=== PATIENT | female | born 1970 | race African-American/Black ===

== ENCOUNTER → 2017-10-29 | Outpatient (CLI) | payer OTHER | END | disposition home or self-care (01) | LOC: MAMMO 09:32 | DX: Z12.31 Encounter for screening mammogram for malignant neoplasm of breast (principal) | CPT/HCPCS: G0202 ==

== ENCOUNTER → 2018-10-31 | Outpatient (CLI) | payer OTHER ==
[2016-10-05 11:29] VITALS: BP 155/100
--- NOTE | 2018-11-03 09:31 | RAD ---
DATE: 10/31/2018 10:30 AM EXAM: DIGITAL SCREEN BILAT W/CAD HISTORY: routine screening evaluation. COMPARISON: Prior mammographic and ultrasound imaging dating back to 01/24/2013 Bilateral full field craniocaudal and mediolateral oblique images were obtained using digital technique. This study was interpreted with the benefit of Computerized Aided Detection (CAD ). Breast Density: The breast parenchyma shows scattered fibroglandular densities. Breast parenchyma level B. FINDINGS: Benign calcifications are present. The parenchymal pattern appears stable. Left breast mass previously shown to be benign by biopsy is borderline decreased in size. No new suspicious masses, microcalcifications or architectural distortion is present to suggest malignancy in either breast. The visualized axillae are unremarkable. IMPRESSION: No mammographic evidence of malignancy. BI-RADS CATEGORY: 2 BENIGN FINDING(S) RECOMMENDED FOLLOW-UP: 12M 12 MONTH FOLLOW-UP Annual screening mammography is recommended, unless clinically indicated sooner based on symptoms or change in physical exam. PQRS compliance statement: Patient information was entered into a reminder system with a target due date 10/31/2019 for the next mammogram. Mammography is a sensitive method for finding small breast cancers, but it does not detect them all and is not a substitute for careful clinical examination. A negative mammogram does not negate a clinically suspicious finding and should not result in delay in biopsying a clinically suspicious abnormality. "Our facility is accredited by the [employer] Mammography Program." MTDD
== END | disposition home or self-care (01) ==
LOC: MAMMO 08:27
PROVIDERS: ATTEND Family Medicine
DX: Z12.31 Encounter for screening mammogram for malignant neoplasm of breast (principal)
CPT/HCPCS: 77067

== ENCOUNTER → 2019-09-18 | Day surgery (SDC) | payer OTHER ==
[~2019-09-18] VITALS: Ht 170.2 cm; Wt 125.5 kg
[~2019-09-18] MED LIST: BUPIVACAINE-EPI 0.5%-1:200000 MPF 30 ML VIAL. INJ ONE; DEXAMETHASONE SOD PHOS 4 MG/ML VIAL ONE; GLYCOPYRROLATE 1 MG/5 ML VIAL. ONE; HYDROmorphone 2 MG/ML VIAL IV PRN; IV RINGERS,LACTATED 1000ML 1,000 ML IV SCH; KETOROLAC 30 MG/ML VIAL. ONE; LIDOCAINE 1% PF 2 ML VIAL. ID PRN; LISI10TA2 PO; MIDAZOLAM HCL/PF 2 MG/2 ML VIAL. ONE; MORPHINE SULFATE 2 MG/ML VIAL. IV PRN; NEOSTIGMINE METHYLSULFATE 5 MG/5 ML SYRINGE. ONE; ONDANSETRON PF 4 MG/2 ML VIAL. IV PRN; ONDANSETRON PF 4 MG/2 ML VIAL. ONE; PROCHLORPERAZINE 10 MG/2 ML VIAL. IV PRN; PROPOFOL 20 ML IV ONE; ROCURONIUM 50 MG/5 ML VIAL. ONE; SEVOFLURANE 61 TO 120 MINUTES. IH ONE; SUCCINYLCHOLINE 200 MG/10 ML VIAL. ONE; ceFAZolin SODIUM 3 GM in IV DEXTROSE 5% 100ML 100 ML IV PRN; ePHEDrine PF IN SALINE 50 MG/10 ML SYRINGE. IV ONE; fentaNYL PF VIAL 100 MCG/2 ML VIAL IV PRN; fentaNYL PF VIAL 100 MCG/2 ML VIAL ONE; oxyCODONE/APAP 5/325 1 TAB TABLET PO ONE
--- NOTE | 2019-09-18 11:21 | PDOC4 ---
Operative Note Operative Note Operative Note: Preoperative Diagnosis: Ventral hernia Postoperative Diagnosis: Same Procedure: Exploratory laparoscopy, ventral hernia repair with mesh Surgeon: Alessandro Meeting Facilitator: Lula FITZGERALD Anesthesia: Gen. EBL: 10 mL Specimen: None Drains: None Complications: None Indication: The patient is a 48-year-old female who was referred due to an upper abdominal hernia that developed subsequent to prior surgery. In addition she has right upper quadrant lateral abdominal pain for which etiology is unclear. The plan is to proceed with repair of the upper abdominal hernia and she requests for laparoscopy to further evaluate a potential source of pain in the lateral abdomen. The details and risks of surgery were discussed. The risks include bleeding, infection, visceral injury, pain, anesthetic risk, hernia recurrence, potential need for additional surgery or procedure. She understands and would like to proceed. Description: The patient was taken to the operating room and placed supine on the operating table. Gen. anesthesia was performed. The abdomen was prepped with ChloraPrep and draped in a standard surgical manner. A small supraumbilical incision was made in the skin through which a Veress needle was inserted and a pneumoperitoneum was created. A 5 mm trocar was then inserted and the laparoscope was introduced. Inspection of the upper abdomen showed numerous adhesions from prior surgery. There was no other abnormality that was apparent. There was no clear sign of inflammatory process or abnormal mass or lesion. The adhesions did obscure visualization somewhat however the overall appearance seemed consistent with prior surgery with no clear abnormalities. The pneumoperitoneum was relieved and we proceeded with the hernia repair. She had an upper abdominal transverse incision from prior surgery. The incision was excised in an elliptical manner. Cautery dissection was carried down through the subcutaneous tissues to the level of the fascia. The fascial defect was delineated and dissected circumferentially. The defect was fairly small. A subfascial plane was then developed and a small Ventralex ST mesh was then placed in the space. The mesh was sutured to the fascia with 0 Prolene at the 12, 3, 6, 9:00 positions in a horizontal mattress fashion. The fascial edges were approximated over the mesh with 0 Prolene. The subcutaneous tissue was closed with 3-0 Vicryl. The skin was approximated with 4-0 Monocryl and Steri- Strips and a sterile dressing were then applied. The patient tolerated the procedure well and was sent to the recovery room in stable condition. At the end of the case all counts were correct. RICHA PEÑA MD Sep 18, 2019 11:21
--- NOTE | 2019-09-18 11:25 | DISCH ---
DISCHARGE INSTRUCTIONS Condition on Discharge Condition on Discharge: Stable Activity After Discharge Activity Instructions for Disc: Other, see below (no lifting over 20 lbs X 4 weeks) Diet after Discharge Diet after Discharge: Regular Wound Incision Care Wound/Incision Care: Other, see below (keep dressing clean and dry X 72 hours, may then remove and shower) Follow-Up Follow up with: Dr Peña in 2 weeks in office, call for appt [phone] RICHA PEÑA MD Sep 18, 2019 11:24
[2019-09-18 12:10] VITALS: BP 154/83
--- NOTE | 2019-09-20 09:07 | PATHOLOGY ---
[facility] Accession Number: [id number] . 01 Material submitted: . abdomen - SUBCUTANEOUS ABDOMINAL TISSUE . 01 Clinical history: . abdominal pain . 02 Diagnosis: Segment of fibroadipose tissue, abdominal subcutaneous tissue: - Focal fat necrosis. (JPM/db; 09/19/2019) LBQ 09/19/2019 1531 Local . 02 Electronically signed: . Chace Gillespie MD, Pathologist NPI- [id number] . 01 Gross description: . The specimen is received in formalin, labeled "Rosina Hernandez, subcutaneous abdominal tissue" and consists of a segment of yellow orange lobulated tissue measuring 2.1 x 1.9 x 0.7 cm. Sectioning reveals pink-schwarz membranous/fibrous streaks and no gross lesions. Government Relations Manager tissue is submitted in A1. (SDY; 09/18/2019) SYU/SYU 09/18/2019 1652 Local . 02 Pathologist provided ICD-10: I96, R10.9 . 02 CPT . 876212 Specimen Comment: A courtesy copy of this report has been sent to [phone], [phone] Specimen Comment: [id number] Specimen Comment: Report sent to / DR ERVIN Performed at: 01 [facility] [place] [address], [place], [place] [id number] MD Loc Flowers MD Phone: [phone] Performed at: 02 [facility] [place] [address] [place], [place] [id number] MD Chace Gillespie MD Phone: [phone]
== END ==
LOC: SURG 08:10
PROVIDERS: ATTEND Surgery
DX: K43.9 Ventral hernia without obstruction or gangrene (principal); M79.89 Other specified soft tissue disorders; E66.9 Obesity, unspecified; I10 Essential (primary) hypertension; Z90.710 Acquired absence of both cervix and uterus; Z90.49 Acquired absence of other specified parts of digestive tract
CPT/HCPCS: 49652; 88304; A7015; C1713; C1781; J0171; J0330; J1100; J1885; J2250; J2405; J2704; J2710; J3010; J3490; J7030; J7120

== ENCOUNTER → 2019-11-02 | Outpatient (CLI) | payer OTHER ==
[2019-09-18 12:10] VITALS: BP 154/83
[~2019-11-02] MED LIST changes: -BUPIVACAINE-EPI 0.5%-1:200000 MPF 30 ML VIAL. INJ ONE; -DEXAMETHASONE SOD PHOS 4 MG/ML VIAL ONE; -GLYCOPYRROLATE 1 MG/5 ML VIAL. ONE; -HYDROmorphone 2 MG/ML VIAL IV PRN; -IV RINGERS,LACTATED 1000ML 1,000 ML IV SCH; -KETOROLAC 30 MG/ML VIAL. ONE; -LIDOCAINE 1% PF 2 ML VIAL. ID PRN; -MIDAZOLAM HCL/PF 2 MG/2 ML VIAL. ONE; -MORPHINE SULFATE 2 MG/ML VIAL. IV PRN; -NEOSTIGMINE METHYLSULFATE 5 MG/5 ML SYRINGE. ONE; -ONDANSETRON PF 4 MG/2 ML VIAL. IV PRN; -ONDANSETRON PF 4 MG/2 ML VIAL. ONE; -PROCHLORPERAZINE 10 MG/2 ML VIAL. IV PRN; -PROPOFOL 20 ML IV ONE; -ROCURONIUM 50 MG/5 ML VIAL. ONE; -SEVOFLURANE 61 TO 120 MINUTES. IH ONE; -SUCCINYLCHOLINE 200 MG/10 ML VIAL. ONE; -ceFAZolin SODIUM 3 GM in IV DEXTROSE 5% 100ML 100 ML IV PRN; -ePHEDrine PF IN SALINE 50 MG/10 ML SYRINGE. IV ONE; -fentaNYL PF VIAL 100 MCG/2 ML VIAL IV PRN; -fentaNYL PF VIAL 100 MCG/2 ML VIAL ONE; -oxyCODONE/APAP 5/325 1 TAB TABLET PO ONE
--- NOTE | 2019-11-02 14:49 | RAD ---
DATE: 11/02/2019 EXAM: DIGITAL SCREEN BILAT W/CAD HISTORY: Routine screening COMPARISON: 10/22/2016, 10/29/2017, 10/31/2018 mammographic exams This study was interpreted with the benefit of Computerized Aided Detection (CAD). Breast Density: SCATTERED The breast parenchyma shows scattered fibroglandular densities. Breast parenchyma level B. FINDINGS: Mass involving the left posterior breast with biopsy clip marker noted. No suspicious calcification, new mass, or new distortion. IMPRESSION: Stable BI-RADS CATEGORY: 1 NEGATIVE RECOMMENDED FOLLOW-UP: 12M 12 MONTH FOLLOW-UP PQRS compliance statement: Patient information was entered into a reminder system with a target due date for the next mammogram. Mammography is a sensitive method for finding small breast cancers, but it does not detect them all and is not a substitute for careful clinical examination. A negative mammogram does not negate a clinically suspicious finding and should not result in delay in biopsying a clinically suspicious abnormality. "Our facility is accredited by the [employer] Mammography Program."
== END | disposition home or self-care (01) ==
LOC: MAMMO 13:04
PROVIDERS: ATTEND Family Medicine
DX: Z12.31 Encounter for screening mammogram for malignant neoplasm of breast (principal); N63.20 Unspecified lump in the left breast, unspecified quadrant
CPT/HCPCS: 77067

== ENCOUNTER 2020-06-18 14:20 | Inpatient (IN) | payer BC, OTHER ==
[~2020-06-18] VITALS: Ht 170.2 cm; Wt 114.0 kg
[2020-06-18 15:01] LABS: BASO % 0 % (0-3); EOS % 0 % (0-3); HEMATOCRIT 38.2 % (36.0-47.0); HEMOGLOBIN 12.3 g/dL (12.0-15.5); LYMPH % 23 % (24-48); MEAN CORPUSCULAR HEMOGLOBIN 23 pg (25-35); MEAN CORPUSCULAR HGB CONC 32 g/dL (31-37); MEAN CORPUSCULAR VOLUME 73 fL (79-100); MONO # 0.3 x10^3/uL (0.0-1.1); MONO % 7 % (0-9); NEUT % 69 % (31-73); PLATELET COUNT 139 x10^3/uL (140-400); RED BLOOD COUNT 5.26 x10^6/uL (3.50-5.40); RED CELL DISTRIBUTION WIDTH 14.9 % (11.5-14.5); WHITE BLOOD COUNT 4.3 x10^3/uL (4.0-11.0)
[2020-06-18 15:08] LABS: CALCIUM 8.7 mg/dL (8.5-10.1); CREATININE 0.9 mg/dL (0.6-1.0); GFR 80.9; POTASSIUM 3.5 mmol/L (3.5-5.1)
[2020-06-18 15:14] LABS: ALBUMIN 3.5 g/dL (3.4-5.0); ALBUMIN/GLOBULIN RATIO 0.8 (1.0-1.7); TOTAL BILIRUBIN 0.3 mg/dL (0.2-1.0)
[2020-06-18] MEDS ORDERED: IV NORMAL SALINE 1000ML BAG 1,000 ML IV ONE (15:30)
[2020-06-18] MEDS ORDERED: ACETAMINOPHEN 500 MG TABLET PO ONE (15:30)
--- NOTE | 2020-06-18 15:32 | RAD ---
EXAM: CHEST ONE VIEW. HISTORY: Shortness of breath, Covid positive. COMPARISON: None. FINDINGS: A frontal view of the chest is obtained. The inspiration is small. Linear opacities in the bases are compatible with atelectasis, but atypical infiltrates cannot be excluded in this setting. There is no pneumothorax or pleural effusion. The heart is not enlarged. IMPRESSION: 1. Small inspiration with bibasilar atelectasis versus mild infiltrates. Electronically signed by: Miguelito Bocanegra MD (06/18/2020 3:30 PM) [id number]
[2020-06-18 15:34] LABS: BASE EXCESS COOX -1 mmol/L (-3-3); HCO3 COOX 22 mmol/L (21-28); METHEMOGLOBIN 0.4 % (0.0-1.9); OXYHEMOGLOBIN 90.6 %; PCO2 COOX 32 mmHg (35-46); PO2 COOX 59 mmHg (75-108); SAT O2 COOX 91 % (92-99)
[2020-06-18] MEDS ORDERED: AZITHRMYCN 500MG IVPB FOR OMNI 250 ML IV ONE (15:45)
[2020-06-18] MEDS ORDERED: DEXAMETHASONE 4 MG TABLET PO ONE (15:45)
--- NOTE | 2020-06-18 15:57 | PHYS DOC ---
Past Medical History Past Medical History: Hypertension Past Surgical History: Cholecystectomy, Other Additional Past Surgical Histo: PARTIAL HYST Smoking Status: Never Smoker Alcohol Use: Occasionally Drug Use: None General Adult EDM: Chief Complaint: SHORTNESS OF BREATH HPI: HPI: Patient is a 49 year old female who presents with sent in by her primary care today as patient has increased shortness of air and left-sided chest pain especially with breathing. Patient reports increased shortness of breath. She was diagnosed with COVID on . Patient's primary care states that when she was walking her O2 saturation was 86% on room air. Patient is 93% on room air here with sitting still in the bed. Patient has a constant dry cough. She states she is also had diarrhea for the last 2 days. She denies a fever but her temperature in the ED is 99.8. Patient's only history is high cholesterol, hypertension and hysterectomy. Patient rates her chest discomfort at a 5 out of 10. Review of Systems: Review of Systems: Constitutional: Denies fever or chills. [] Eyes: Denies change in visual acuity. [] HENT: Denies nasal congestion or sore throat. [] Respiratory: Denies cough or shortness of breath. [] Cardiovascular: Denies chest pain or edema. [] GI: Denies abdominal pain, nausea, vomiting, bloody stools or diarrhea. [] : Denies dysuria. [] Musculoskeletal: Denies back pain or joint pain. [] Integument: Denies rash. [] Neurologic: Denies headache, focal weakness or sensory changes. [] Endocrine: Denies polyuria or polydipsia. [] Lymphatic: Denies swollen glands. [] Psychiatric: Denies depression or anxiety. [] Heart Score: HEART Score for Chest Pain: HEART Score for Chest Pain Response (Comments) Value History Slighlty/Non-Suspicious 0 ECG Normal 0 Age >45 - < 65 1 Risk Factors 1 or 2 Risk Factors 1 Troponin < Normal Limit 0 Total 2 Risk Factors: Risk Factors: DM, Current or recent (<one month) smoker, HTN, HLP, family history of CAD, obesity. Risk Scores: Score 0 - 3: 2.5% MACE over next 6 weeks - Discharge Home Score 4 - 6: 20.3% MACE over next 6 weeks - Admit for Clinical Observation Score 7 - 10: 72.7% MACE over next 6 weeks - Early Invasive Strategies Current Medications: Current Medications Medications (Trade) Dose Ordered Sig/Moy Start Time Stop Time Status Last Admin Dose Admin Acetaminophen (Tylenol) 1,000 mg 1X ONCE 06/18/20 15:30 06/18/20 15:31 DC Sodium Chloride 1,000 ml @ 1,000 mls/hr 1X ONCE 06/18/20 15:30 06/18/20 16:29 Allergies: Allergies: Allergies Coded Allergies Type Severity Reaction Last Updated Verified No Known Drug Allergies 10/04/16 No Physical Exam: PE: Constitutional: Well developed, well nourished, no acute distress, non-toxic appearance. [] HENT: Normocephalic, atraumatic, bilateral external ears normal, oropharynx mois t, no oral exudates, nose normal. [] Eyes: PERRLA, EOMI, conjunctiva normal, no discharge. [] Neck: Normal range of motion, no tenderness, supple, no stridor. [] Cardiovascular:Heart rate regular rhythm, no murmur [] Lungs & Thorax: Bilateral breath sounds clear to auscultation [] Abdomen: Bowel sounds normal, soft, no tenderness, no masses, no pulsatile masses. [] Skin: Warm, dry, no erythema, no rash. [] Back: No tenderness, no CVA tenderness. [] Extremities: No tenderness, no cyanosis, no clubbing, ROM intact, no edema. [] Neurologic: Alert and oriented X 3, normal motor function, normal sensory function, no focal deficits noted. [] Psychologic: Affect normal, judgement normal, mood normal. [] Current Patient Data: Labs: Laboratory Tests Test 06/18/20 14:45 White Blood Count 4.3 x10^3/uL (4.0-11.0) Red Blood Count 5.26 x10^6/uL (3.50-5.40) Hemoglobin 12.3 g/dL (12.0-15.5) Hematocrit 38.2 % (36.0-47.0) Mean Corpuscular Volume 73 fL (79-100) L Mean Corpuscular Hemoglobin 23 pg (25-35) L Mean Corpuscular Hemoglobin Concent 32 g/dL (31-37) Red Cell Distribution Width 14.9 % (11.5-14.5) H Platelet Count 139 x10^3/uL (140-400) L Neutrophils (%) (Auto) 69 % (31-73) Lymphocytes (%) (Auto) 23 % (24-48) L Monocytes (%) (Auto) 7 % (0-9) Eosinophils (%) (Auto) 0 % (0-3) Basophils (%) (Auto) 0 % (0-3) Neutrophils # (Auto) 3.0 x10^3/uL (1.8-7.7) Lymphocytes # (Auto) 1.0 x10^3/uL (1.0-4.8) Monocytes # (Auto) 0.3 x10^3/uL (0.0-1.1) Eosinophils # (Auto) 0.0 x10^3/uL (0.0-0.7) Basophils # (Auto) 0.0 x10^3/uL (0.0-0.2) D-Dimer (Yanelis) 0.34 ug/mlFEU (0.00-0.50) Sodium Level 136 mmol/L (136-145) Potassium Level 3.5 mmol/L (3.5-5.1) Chloride Level 98 mmol/L (98-107) Carbon Dioxide Level 29 mmol/L (21-32) Anion Gap 9 (6-14) Blood Urea Nitrogen 7 mg/dL (7-20) Creatinine 0.9 mg/dL (0.6-1.0) Estimated GFR (Cockcroft-Gault) 80.9 BUN/Creatinine Ratio 8 (6-20) Glucose Level 109 mg/dL (70-99) H Calcium Level 8.7 mg/dL (8.5-10.1) Total Bilirubin 0.3 mg/dL (0.2-1.0) Aspartate Amino Transferase (AST) 29 U/L (15-37) Alanine Aminotransferase (ALT) 26 U/L (14-59) Alkaline Phosphatase 71 U/L (46-116) Troponin I Quantitative < 0.017 ng/mL (0.000-0.055) Total Protein 8.0 g/dL (6.4-8.2) Albumin 3.5 g/dL (3.4-5.0) Albumin/Globulin Ratio 0.8 (1.0-1.7) L Laboratory Tests 06/18/20 14:45 Laboratory Tests 06/18/20 14:45 Vital Signs: Vital Signs Date Time Temp Pulse Resp B/P (MAP) Pulse Ox O2 Delivery O2 Flow Rate FiO2 06/18/20 14:25 99.8 92 20 154/83 (106) 97 Room Air 99.8 EKG: EK and read by Dr. Newell as normal sinus rhythm and no STEMI. [] Radiology/Procedures: Radiology/Procedures: [] Impression: [facility] [address] [place] [address] IMAGING REPORT Signed PATIENT: NABEEL MARTINEZ ACCOUNT: [id number] : 1970 LOCATION: ER AGE: 49 SEX: F EXAM STATUS: REG ER ORD. PHYSICIAN: HERNANDEZ PARKS APRN REASON: soa, covid+ PROCEDURE: PORTABLE CHEST 1V EXAM: CHEST ONE VIEW. HISTORY: Shortness of breath, Covid positive. COMPARISON: None. FINDINGS: A frontal view of the chest is obtained. The inspiration is small. Linear opacities in the bases are compatible with atelectasis, but atypical infiltrates cannot be excluded in this setting. There is no pneumothorax or pleural effusion. The heart is not enlarged. IMPRESSION: 1. Small inspiration with bibasilar atelectasis versus mild infiltrates. Electronically signed by: Miguelito Bocanegra MD (06/18/2020 3:30 PM) [id number] DICTATED and SIGNED BY: FADUMO BOCANEGRA MD DATE: 06/18/201529 Course & Med Decision Making: Course & Med Decision Making Pertinent Labs and Imaging studies reviewed. (See chart for details) COVID-19 CRITERIA: The patient was evaluated during the global COVID-19 pandemic, and that diagnosis was suspected/considered upon their initial presentation. Their evaluation, treatment and testing was consistent with current guidelines for patients who present with complaints or symptoms that may be related to COVID-19. Alert and oriented x4. Skin pink warm and dry. Lungs are clear in upper lobes but diminished in lower lobes bilaterally. Abdomen soft and nontender. No extremity edema. Patient speaks in full sentences but is broken up due to her coughing. Her ABG shows 91% O2 saturation. I have spoken to Dr. Olsen for admission. [] Jhoana Disclaimer: Jhoana Disclaimer: This electronic medical record was generated, in whole or in part, using a voice recognition dictation system. COVID-19 Patient Risks: Age 65 or older: No Sign of co-morbidity: Yes Exp to person + for COVID: No Exp to PUI: No Travel from affected area: No Lower respiratory symptoms: Yes Fever: Yes Other: Yes (PATIENT POSITIVE FOR COVID) PPE Use: Full PPE with N95 mask or PAPR: Yes Departure Departure Impression: Primary Impression: COVID-19 Additional Impression: Hypoxia Disposition: ADMITTED INPATIENT Admitting Physician: DAWNA Condition: STABLE Referrals: POLLO ERVIN MD (PCP) Justicifation of Admission Dx: Justifications for Admission: Justification of Admission Dx: Yes (hypoxia) HERNANDEZ PARKS GOLDSMITH APPRENTICE Jun 18, 2020 15:57
[2020-06-18 16:14] LABS: BILIRUBIN,URINE NEGATIVE (NEG); CLARITY,URINE CLEAR; COLOR,URINE YELLOW; NITRITE,URINE NEGATIVE (NEG); PROTEIN,URINE 30 mg/dL (NEG-TRACE); UROBILINOGEN,URINE 0.2 mg/dL (0.2 mg/dL)
[2020-06-18 16:17] LABS: BACTERIA,URINE FEW /HPF (0-FEW); RBC,URINE 0 /HPF (0-2); SQUAMOUS EPITHELIAL CELL,UR MOD /LPF
[2020-06-18] MEDS ORDERED: ACETAMINOPHEN 325 MG TABLET. PO PRN (16:30)
[2020-06-18] MEDS ORDERED: ONDANSETRON PF 4 MG/2 ML VIAL. IV PRN (16:30)
[2020-06-18] MEDS ORDERED: ALBUTEROL SULFATE 2.5 MG/3 ML NEBU. NEB PRN (17:00)
[2020-06-18 18:41] VITALS: BP 110/74
[2020-06-18] MEDS ORDERED: IPRATRPIUM/ALBUTEROL 0.5/2.5MG 3 ML NEBU. NEB SCH (20:00)
[2020-06-18] MEDS ORDERED: PIP/TAZO PER PHARMACY MC PRN (21:00)
--- NOTE | 2020-06-18 21:03 | CONS ---
DATE OF CONSULTATION: 06/18/2020 PULMONARY CONSULTATION ATTENDING PHYSICIAN: Dr. Olsen. REASON FOR CONSULTATION: COVID pneumonia. HISTORY OF PRESENT ILLNESS: The patient is 49 years old with a BMI of 40.8. She has no significant tobacco history. She was not feeling well with cough, body aches, and tired. She said she helped move her daughter to a new apartment and everybody got sick and had COVID. She was seen in the Emergency Room with saturation of 86% on room air. As a result, she was hospitalized. The patient's chest x-ray showed faint basal infiltrates versus atelectasis. Her T-max was 99.8 in the ER. No headaches, no nausea, vomiting, no diarrhea, no dysuria. No history of asthma. PAST MEDICAL HISTORY: Significant for history of dyslipidemia and hypertension. PAST SURGICAL HISTORY: Hysterectomy. ALLERGIES: None. MEDICATIONS: Reviewed as listed in the MRAD. REVIEW OF SYSTEMS: Obtained from the patient, twelve-point systems obtained. Pertinent positives discussed in my history of present illness, otherwise noncontributory. FAMILY HISTORY: Noncontributory to lungs. PHYSICAL EXAMINATION: VITAL SIGNS: T-max of 99.8. The exam was done via telemedicine. Vital signs were reviewed. GENERAL: She is in no obvious respiratory distress. She is requiring 2 liters of nasal cannula, 97% saturation. SKIN: No skin rash. LUNGS: No paradoxical breathing. LABORATORY DATA: Reviewed. White cell count 12.3, hemoglobin 12.3, and platelets are 139. BUN and creatinine are normal. ABGs with a pH of 7.46, pCO2 of 32, and a pO2 of 59 on room air. IMPRESSION: 1. Acute hypoxic respiratory failure secondary to COVID-19 pneumonia. 2. Abnormal chest x-ray suggesting mild basal infiltrates consistent with pneumonia. 3. Underlying obesity. 4. Hypertension. RECOMMENDATIONS: 1. Continue with present oxygen at 2 liters, keep saturation 92 and above. 2. Add empiric antibiotics. 3. IV Solu-Medrol. 4. We will follow the response to treatment. 5. If clinically deteriorates, we can add remdesivir and consider plasma. 6. Discussed with RN. We will follow along with you. MINDA TY MD DR: GORAN/emeterio JOB#: [id number] / [id number] JANEEN Hidalgo DO
--- NOTE | 2020-06-18 21:12 | HP ---
ADMIT DATE: 06/18/2020 CHIEF COMPLAINT: Recent COVID-19 infection with worsening symptoms. HISTORY OF PRESENT ILLNESS: The patient is a pleasant 49-year-old female who was diagnosed with COVID-19 last . She was sent home with some appropriate medications, but she states her symptoms are worsening. Her oxygen saturations are down to 86% on room air. She has a persistent cough now. She has also had some diarrhea. I discussed the case with ER physician. We are going to admit the patient and treat her with COVID-19 protocol and I am going to be consulting Infectious Disease and Pulmonary. PAST MEDICAL AND SURGICAL HISTORY: Recent diagnosis of COVID-19 about 5 days ago, hypertension, cholecystectomy, hyperlipidemia, hysterectomy. ALLERGIES: None. FAMILY HISTORY: Diabetes. SOCIAL HISTORY: She does not drink, smoke or take drugs. MEDICATIONS: Reviewed, please refer to the MRAD. REVIEW OF SYSTEMS: GENERAL: She complains of weakness. SKIN: No bruising, hair changes or rashes. EYES: No blurred, double or loss of vision. NOSE AND THROAT: No history of nosebleeds, hoarseness or sore throat. HEART: No history of palpitations, chest pain or shortness of breath on exertion. LUNGS: The patient complains of shortness of breath and cough. GASTROINTESTINAL: She complains of diarrhea. GENITOURINARY: No history of frequency, urgency, hesitancy or nocturia. NEUROLOGIC: Denies history of numbness, tingling, tremor or weakness. PSYCHIATRIC: No history of panic, anxiety or depression. ENDOCRINE: No history of heat or cold intolerance, polyuria or polydipsia. EXTREMITIES: Denies muscle weakness, joint pain, pain on walking or stiffness. ASSESSMENT AND PLAN: Respiratory failure secondary to COVID-19. The patient is being admitted. We are consulting Infectious Disease and Pulmonary. IV antibiotics, IV steroids, metered-dose inhalers, O2 per nasal cannula. We will consider remdesivir and plasma if Pulmonary, Infectious Disease agree. PROGNOSIS: Guarded. JANEEN LUCAS DO DR: JERMAINE/emeterio JOB#: [id number] / [id number]
[2020-06-18] MEDS: methylPREDNISolone SOD SUCC PF 40 MG/ML VIAL. IV SCH (22:38)
[2020-06-18] MEDS: PIPERACILLIN/TAZOBACTAM 3.375 GM in IV NORMAL SALINE 50ML 50 ML IV SCH (22:39)
[2020-06-18] MEDS: BENZONATATE 100 MG CAPSULE. PO SCH (22:42)
[2020-06-18 23:00] VITALS: BP 110/73
[2020-06-19 03:00] VITALS: BP 140/95
[2020-06-19] MEDS: BENZONATATE 100 MG CAPSULE. PO SCH ×2 (05:59→14:43)
[2020-06-19] MEDS: PIPERACILLIN/TAZOBACTAM 3.375 GM in IV NORMAL SALINE 50ML 50 ML IV SCH ×3 (06:00→16:33)
[2020-06-19 07:00] VITALS: BP 134/85
[2020-06-19] MEDS: methylPREDNISolone SOD SUCC PF 40 MG/ML VIAL. IV SCH ×2 (07:58→21:28)
[2020-06-19] MEDS: MULTIVITAMIN with MINERAL TABLET. PO SCH (07:58)
[2020-06-19] MEDS: AZITHROMYCIN 250 MG TABLET. PO SCH (07:58)
[2020-06-19] MEDS ORDERED: LISINOPRIL 10 MG TABLET PO SCH (09:00)
--- NOTE | 2020-06-19 09:43 | PDOC ---
Infectious Disease Note Vital Sign Vital Signs Vital Signs Date Time Temp Pulse Resp B/P (MAP) Pulse Ox O2 Delivery O2 Flow Rate FiO2 06/19/20 07:58 100 140/95 06/19/20 07:00 97.7 19 97 Room Air 2.0 97.7 Labs Lab Laboratory Tests Test 06/18/20 14:45 06/18/20 15:30 06/18/20 16:04 White Blood Count 4.3 x10^3/uL (4.0-11.0) Red Blood Count 5.26 x10^6/uL (3.50-5.40) Hemoglobin 12.3 g/dL (12.0-15.5) Hematocrit 38.2 % (36.0-47.0) Mean Corpuscular Volume 73 fL (79-100) Mean Corpuscular Hemoglobin 23 pg (25-35) Mean Corpuscular Hemoglobin Concent 32 g/dL (31-37) Red Cell Distribution Width 14.9 % (11.5-14.5) Platelet Count 139 x10^3/uL (140-400) Neutrophils (%) (Auto) 69 % (31-73) Lymphocytes (%) (Auto) 23 % (24-48) Monocytes (%) (Auto) 7 % (0-9) Eosinophils (%) (Auto) 0 % (0-3) Basophils (%) (Auto) 0 % (0-3) Neutrophils # (Auto) 3.0 x10^3/uL (1.8-7.7) Lymphocytes # (Auto) 1.0 x10^3/uL (1.0-4.8) Monocytes # (Auto) 0.3 x10^3/uL (0.0-1.1) Eosinophils # (Auto) 0.0 x10^3/uL (0.0-0.7) Basophils # (Auto) 0.0 x10^3/uL (0.0-0.2) D-Dimer (Yanelis) 0.34 ug/mlFEU (0.00-0.50) Sodium Level 136 mmol/L (136-145) Potassium Level 3.5 mmol/L (3.5-5.1) Chloride Level 98 mmol/L (98-107) Carbon Dioxide Level 29 mmol/L (21-32) Anion Gap 9 (6-14) Blood Urea Nitrogen 7 mg/dL (7-20) Creatinine 0.9 mg/dL (0.6-1.0) Estimated GFR (Cockcroft-Gault) 80.9 BUN/Creatinine Ratio 8 (6-20) Glucose Level 109 mg/dL (70-99) Calcium Level 8.7 mg/dL (8.5-10.1) Total Bilirubin 0.3 mg/dL (0.2-1.0) Aspartate Amino Transf (AST/SGOT) 29 U/L (15-37) Alanine Aminotransferase (ALT/SGPT) 26 U/L (14-59) Alkaline Phosphatase 71 U/L (46-116) Troponin I Quantitative < 0.017 ng/mL (0.000-0.055) Total Protein 8.0 g/dL (6.4-8.2) Albumin 3.5 g/dL (3.4-5.0) Albumin/Globulin Ratio 0.8 (1.0-1.7) O2 Saturation 91 % (92-99) Arterial Blood pH 7.46 (7.35-7.45) Arterial Blood pCO2 at Patient Temp 32 mmHg (35-46) Arterial Blood pO2 at Patient Temp 59 mmHg (75-108) Arterial Blood HCO3 22 mmol/L (21-28) Arterial Blood Base Excess -1 mmol/L (-3-3) Oxyhemoglobin 90.6 % Methemoglobin 0.4 % (0.0-1.9) Carbon Monoxide, Quantitative 0.3 % (0.0-1.9) FiO2 21 Urine Collection Type Unknown Urine Color Yellow Urine Clarity Clear Urine pH 6.0 (<5.0-8.0) Urine Specific Wagoner 1.015 (1.000-1.030) Urine Protein 30 mg/dL (NEG-TRACE) Urine Glucose (UA) Negative mg/dL (NEG) Urine Ketones (Stick) 40 mg/dL (NEG) Urine Blood Negative (NEG) Urine Nitrite Negative (NEG) Urine Bilirubin Negative (NEG) Urine Urobilinogen Dipstick 0.2 mg/dL (0.2 mg/dL) Urine Leukocyte Esterase Negative (NEG) Urine RBC 0 /HPF (0-2) Urine WBC 1-4 /HPF (0-4) Urine Squamous Epithelial Cells Mod /LPF Urine Bacteria Few /HPF (0-FEW) Urine Mucus Mod /LPF Objective Assessment fever COVID + 06/13 but colleced at [facility] 06/11 Morbid Obesity Acute hypoxic resp failure On Steroids Plan Plan of Care Cont Zosyn for now but wean soon F/u labs and cults Need for Plasma/Remdesivir per Pulm. Cont Steroids per Pulm Thank you # [id number] WARREN FOSTER MD Jun 19, 2020 09:43
--- NOTE | 2020-06-19 09:52 | PDOC ---
[employer] PROGRESS NOTE Date of Service DOS: DATE: 06/19/20 TIME: 09:52 Chief Complaint Chief Complaint Acute hypoxic respiratory failure secondary to COVID-19 pneumonia.--improved. Continue steroids. No indication for remdesivir or convalescent plasma at this time. Abnormal chest x-ray suggesting mild basal infiltrates consistent with pneumonia. Obesity. Hypertension. HLD History of Present Illness History of Present Illness Ms Hernandez is a 49-year-old female w/ PMHx HTN, HLD who was diagnosed with COVID- 19 after being informed of the positive test result that was performed on 09/20/2020. She was informed 3 days later about the positive result. She was sent home with self care, but she return to ED as her symptoms are worsening. Her oxygen saturations are down to 86% on room air. She has a persistent cough now. She has also had some diarrhea. Started on steroids Consulting Infectious Disease and Pulmonary. Afebrile. On 2 L nasal cannulated oxygen. She still has an ongoing cough that is improved with Tessalon Perles. Only slight diarrhea and slight abdominal pain. Overall she feels about the same as yesterday Vitals/I&O Vitals/I&O: Vital Signs Date Time Temp Pulse Resp B/P (MAP) Pulse Ox O2 Delivery O2 Flow Rate FiO2 06/19/20 07:58 100 140/95 06/19/20 07:00 97.7 19 97 Room Air 2.0 97.7 I & O 06/18/20 06/18/20 06/19/20 14:59 22:59 06:59 Intake Total 1250 ml 200 ml Balance 1250 ml 200 ml Physical Exam Lungs: Clear Labs Labs: Laboratory Tests Test 06/18/20 14:45 06/18/20 15:30 06/18/20 16:04 White Blood Count 4.3 x10^3/uL (4.0-11.0) Red Blood Count 5.26 x10^6/uL (3.50-5.40) Hemoglobin 12.3 g/dL (12.0-15.5) Hematocrit 38.2 % (36.0-47.0) Mean Corpuscular Volume 73 fL (79-100) Mean Corpuscular Hemoglobin 23 pg (25-35) Mean Corpuscular Hemoglobin Concent 32 g/dL (31-37) Red Cell Distribution Width 14.9 % (11.5-14.5) Platelet Count 139 x10^3/uL (140-400) Neutrophils (%) (Auto) 69 % (31-73) Lymphocytes (%) (Auto) 23 % (24-48) Monocytes (%) (Auto) 7 % (0-9) Eosinophils (%) (Auto) 0 % (0-3) Basophils (%) (Auto) 0 % (0-3) Neutrophils # (Auto) 3.0 x10^3/uL (1.8-7.7) Lymphocytes # (Auto) 1.0 x10^3/uL (1.0-4.8) Monocytes # (Auto) 0.3 x10^3/uL (0.0-1.1) Eosinophils # (Auto) 0.0 x10^3/uL (0.0-0.7) Basophils # (Auto) 0.0 x10^3/uL (0.0-0.2) D-Dimer (Yanelis) 0.34 ug/mlFEU (0.00-0.50) Sodium Level 136 mmol/L (136-145) Potassium Level 3.5 mmol/L (3.5-5.1) Chloride Level 98 mmol/L (98-107) Carbon Dioxide Level 29 mmol/L (21-32) Anion Gap 9 (6-14) Blood Urea Nitrogen 7 mg/dL (7-20) Creatinine 0.9 mg/dL (0.6-1.0) Estimated GFR (Cockcroft-Gault) 80.9 BUN/Creatinine Ratio 8 (6-20) Glucose Level 109 mg/dL (70-99) Calcium Level 8.7 mg/dL (8.5-10.1) Total Bilirubin 0.3 mg/dL (0.2-1.0) Aspartate Amino Transf (AST/SGOT) 29 U/L (15-37) Alanine Aminotransferase (ALT/SGPT) 26 U/L (14-59) Alkaline Phosphatase 71 U/L (46-116) Troponin I Quantitative < 0.017 ng/mL (0.000-0.055) Total Protein 8.0 g/dL (6.4-8.2) Albumin 3.5 g/dL (3.4-5.0) Albumin/Globulin Ratio 0.8 (1.0-1.7) O2 Saturation 91 % (92-99) Arterial Blood pH 7.46 (7.35-7.45) Arterial Blood pCO2 at Patient Temp 32 mmHg (35-46) Arterial Blood pO2 at Patient Temp 59 mmHg (75-108) Arterial Blood HCO3 22 mmol/L (21-28) Arterial Blood Base Excess -1 mmol/L (-3-3) Oxyhemoglobin 90.6 % Methemoglobin 0.4 % (0.0-1.9) Carbon Monoxide, Quantitative 0.3 % (0.0-1.9) FiO2 21 Urine Collection Type Unknown Urine Color Yellow Urine Clarity Clear Urine pH 6.0 (<5.0-8.0) Urine Specific [place] 1.015 (1.000-1.030) Urine Protein 30 mg/dL (NEG-TRACE) Urine Glucose (UA) Negative mg/dL (NEG) Urine Ketones (Stick) 40 mg/dL (NEG) Urine Blood Negative (NEG) Urine Nitrite Negative (NEG) Urine Bilirubin Negative (NEG) Urine Urobilinogen Dipstick 0.2 mg/dL (0.2 mg/dL) Urine Leukocyte Esterase Negative (NEG) Urine RBC 0 /HPF (0-2) Urine WBC 1-4 /HPF (0-4) Urine Squamous Epithelial Cells Mod /LPF Urine Bacteria Few /HPF (0-FEW) Urine Mucus Mod /LPF Assessment and Plan Assessmemt and Plan Problems Medical Problems: (1) COVID-19 Status: Acute (2) Hypoxia Status: Acute Comment Review of Relevant I have reviewed the following items barry (where applicable) has been applied. Medications: Current Medications Medications (Trade) Dose Ordered Sig/Moy Route PRN Reason Start Time Stop Time Status Last Admin Dose Admin Sodium Chloride 1,000 ml @ 1,000 mls/hr 1X ONCE IV 06/18/20 15:30 06/18/20 16:29 DC 06/18/20 15:45 Acetaminophen (Tylenol) 1,000 mg 1X ONCE PO 06/18/20 15:30 06/18/20 15:31 DC 06/18/20 15:46 Dexamethasone (Decadron) 10 mg 1X ONCE PO 06/18/20 15:45 06/18/20 15:46 DC 06/18/20 15:49 Azithromycin 250 ml @ 250 mls/hr 1X ONCE IV 06/18/20 15:45 06/18/20 16:44 DC 06/18/20 15:50 Lisinopril (Prinivil) 10 mg DAILY PO 06/19/20 09:00 06/19/20 07:58 Azithromycin (Zithromax) 250 mg DAILY PO 06/19/20 09:00 06/22/20 09:00 06/19/20 07:58 Methylprednisolone Sodium Succinate (SOLU-Medrol 40MG VIAL) 40 mg BID IV 06/18/20 21:00 06/19/20 07:58 Multivitamins (Thera M Plus) 1 tab DAILY PO 06/19/20 09:00 06/19/20 07:58 Piperacillin Sod/ Tazobactam Sod 3.375 gm/Sodium Chloride 50 ml @ 100 mls/hr Q6HRS IV 06/18/20 22:00 06/19/20 06:00 Benzonatate (Tessalon Perle) 200 mg Q8HRS PO 06/18/20 22:00 06/19/20 05:59 Justicifation of Admission Dx: Justifications for Admission: Justification of Admission Dx: Yes (hypoxia) JAIRO ALLEN MD Jun 19, 2020 09:52
--- NOTE | 2020-06-19 10:49 | PDOC ---
PULMONARY PROGRESS NOTES DATE: 06/19/20 TIME: 10:46 Subjective PT. is up sitting EOB on room air no SOB, No increase cough, No CP Vitals Vital Signs Date Time Temp Pulse Resp B/P (MAP) Pulse Ox O2 Delivery O2 Flow Rate FiO2 06/19/20 07:58 100 140/95 06/19/20 07:00 97.7 19 97 Room Air 2.0 97.7 Comments Pt. seen during pandemic visual exam preformed RRR R/A- 2 Liters N/C no edema no rash Lungs: Clear Labs Laboratory Tests Test 06/18/20 14:45 06/18/20 15:30 06/18/20 16:04 White Blood Count 4.3 x10^3/uL (4.0-11.0) Red Blood Count 5.26 x10^6/uL (3.50-5.40) Hemoglobin 12.3 g/dL (12.0-15.5) Hematocrit 38.2 % (36.0-47.0) Mean Corpuscular Volume 73 fL (79-100) Mean Corpuscular Hemoglobin 23 pg (25-35) Mean Corpuscular Hemoglobin Concent 32 g/dL (31-37) Red Cell Distribution Width 14.9 % (11.5-14.5) Platelet Count 139 x10^3/uL (140-400) Neutrophils (%) (Auto) 69 % (31-73) Lymphocytes (%) (Auto) 23 % (24-48) Monocytes (%) (Auto) 7 % (0-9) Eosinophils (%) (Auto) 0 % (0-3) Basophils (%) (Auto) 0 % (0-3) Neutrophils # (Auto) 3.0 x10^3/uL (1.8-7.7) Lymphocytes # (Auto) 1.0 x10^3/uL (1.0-4.8) Monocytes # (Auto) 0.3 x10^3/uL (0.0-1.1) Eosinophils # (Auto) 0.0 x10^3/uL (0.0-0.7) Basophils # (Auto) 0.0 x10^3/uL (0.0-0.2) D-Dimer (Yanelis) 0.34 ug/mlFEU (0.00-0.50) Sodium Level 136 mmol/L (136-145) Potassium Level 3.5 mmol/L (3.5-5.1) Chloride Level 98 mmol/L (98-107) Carbon Dioxide Level 29 mmol/L (21-32) Anion Gap 9 (6-14) Blood Urea Nitrogen 7 mg/dL (7-20) Creatinine 0.9 mg/dL (0.6-1.0) Estimated GFR (Cockcroft-Gault) 80.9 BUN/Creatinine Ratio 8 (6-20) Glucose Level 109 mg/dL (70-99) Calcium Level 8.7 mg/dL (8.5-10.1) Total Bilirubin 0.3 mg/dL (0.2-1.0) Aspartate Amino Transf (AST/SGOT) 29 U/L (15-37) Alanine Aminotransferase (ALT/SGPT) 26 U/L (14-59) Alkaline Phosphatase 71 U/L (46-116) Troponin I Quantitative < 0.017 ng/mL (0.000-0.055) Total Protein 8.0 g/dL (6.4-8.2) Albumin 3.5 g/dL (3.4-5.0) Albumin/Globulin Ratio 0.8 (1.0-1.7) O2 Saturation 91 % (92-99) Arterial Blood pH 7.46 (7.35-7.45) Arterial Blood pCO2 at Patient Temp 32 mmHg (35-46) Arterial Blood pO2 at Patient Temp 59 mmHg (75-108) Arterial Blood HCO3 22 mmol/L (21-28) Arterial Blood Base Excess -1 mmol/L (-3-3) Oxyhemoglobin 90.6 % Methemoglobin 0.4 % (0.0-1.9) Carbon Monoxide, Quantitative 0.3 % (0.0-1.9) FiO2 21 Urine Collection Type Unknown Urine Color Yellow Urine Clarity Clear Urine pH 6.0 (<5.0-8.0) Urine Specific [place] 1.015 (1.000-1.030) Urine Protein 30 mg/dL (NEG-TRACE) Urine Glucose (UA) Negative mg/dL (NEG) Urine Ketones (Stick) 40 mg/dL (NEG) Urine Blood Negative (NEG) Urine Nitrite Negative (NEG) Urine Bilirubin Negative (NEG) Urine Urobilinogen Dipstick 0.2 mg/dL (0.2 mg/dL) Urine Leukocyte Esterase Negative (NEG) Urine RBC 0 /HPF (0-2) Urine WBC 1-4 /HPF (0-4) Urine Squamous Epithelial Cells Mod /LPF Urine Bacteria Few /HPF (0-FEW) Urine Mucus Mod /LPF Laboratory Tests Test 06/18/20 14:45 06/18/20 15:30 06/18/20 16:04 White Blood Count 4.3 x10^3/uL (4.0-11.0) Red Blood Count 5.26 x10^6/uL (3.50-5.40) Hemoglobin 12.3 g/dL (12.0-15.5) Hematocrit 38.2 % (36.0-47.0) Mean Corpuscular Volume 73 fL (79-100) Mean Corpuscular Hemoglobin 23 pg (25-35) Mean Corpuscular Hemoglobin Concent 32 g/dL (31-37) Red Cell Distribution Width 14.9 % (11.5-14.5) Platelet Count 139 x10^3/uL (140-400) Neutrophils (%) (Auto) 69 % (31-73) Lymphocytes (%) (Auto) 23 % (24-48) Monocytes (%) (Auto) 7 % (0-9) Eosinophils (%) (Auto) 0 % (0-3) Basophils (%) (Auto) 0 % (0-3) Neutrophils # (Auto) 3.0 x10^3/uL (1.8-7.7) Lymphocytes # (Auto) 1.0 x10^3/uL (1.0-4.8) Monocytes # (Auto) 0.3 x10^3/uL (0.0-1.1) Eosinophils # (Auto) 0.0 x10^3/uL (0.0-0.7) Basophils # (Auto) 0.0 x10^3/uL (0.0-0.2) D-Dimer (Yanelis) 0.34 ug/mlFEU (0.00-0.50) Sodium Level 136 mmol/L (136-145) Potassium Level 3.5 mmol/L (3.5-5.1) Chloride Level 98 mmol/L (98-107) Carbon Dioxide Level 29 mmol/L (21-32) Anion Gap 9 (6-14) Blood Urea Nitrogen 7 mg/dL (7-20) Creatinine 0.9 mg/dL (0.6-1.0) Estimated GFR (Cockcroft-Gault) 80.9 BUN/Creatinine Ratio 8 (6-20) Glucose Level 109 mg/dL (70-99) Calcium Level 8.7 mg/dL (8.5-10.1) Total Bilirubin 0.3 mg/dL (0.2-1.0) Aspartate Amino Transf (AST/SGOT) 29 U/L (15-37) Alanine Aminotransferase (ALT/SGPT) 26 U/L (14-59) Alkaline Phosphatase 71 U/L (46-116) Troponin I Quantitative < 0.017 ng/mL (0.000-0.055) Total Protein 8.0 g/dL (6.4-8.2) Albumin 3.5 g/dL (3.4-5.0) Albumin/Globulin Ratio 0.8 (1.0-1.7) O2 Saturation 91 % (92-99) Arterial Blood pH 7.46 (7.35-7.45) Arterial Blood pCO2 at Patient Temp 32 mmHg (35-46) Arterial Blood pO2 at Patient Temp 59 mmHg (75-108) Arterial Blood HCO3 22 mmol/L (21-28) Arterial Blood Base Excess -1 mmol/L (-3-3) Oxyhemoglobin 90.6 % Methemoglobin 0.4 % (0.0-1.9) Carbon Monoxide, Quantitative 0.3 % (0.0-1.9) FiO2 21 Urine Collection Type Unknown Urine Color Yellow Urine Clarity Clear Urine pH 6.0 (<5.0-8.0) Urine Specific [place] 1.015 (1.000-1.030) Urine Protein 30 mg/dL (NEG-TRACE) Urine Glucose (UA) Negative mg/dL (NEG) Urine Ketones (Stick) 40 mg/dL (NEG) Urine Blood Negative (NEG) Urine Nitrite Negative (NEG) Urine Bilirubin Negative (NEG) Urine Urobilinogen Dipstick 0.2 mg/dL (0.2 mg/dL) Urine Leukocyte Esterase Negative (NEG) Urine RBC 0 /HPF (0-2) Urine WBC 1-4 /HPF (0-4) Urine Squamous Epithelial Cells Mod /LPF Urine Bacteria Few /HPF (0-FEW) Urine Mucus Mod /LPF Medications Active Scripts Medications Dose Route/Sig Max Daily Dose Days Date Category Lisinopril 10 Mg Tablet 10 Mg PO DAILY 09/15/19 Reported Impression . IMPRESSION: 1. Acute hypoxic respiratory failure secondary to COVID-19 pneumonia.--improved 2. Abnormal chest x-ray suggesting mild basal infiltrates consistent with pneumonia. 3. Underlying obesity. 4. Hypertension. Plan . RECOMMENDATIONS: 1. Continue with present oxygen at 2 liters, keep saturation 92 and above. 2. cont. ABX 3. cont. IV Solu-Medrol. 4. no need for remdesivir or plasma at this time plasma. 5.DVT/GI PPX 6. Discussed with RN. monitor clinical course MINDA TY MD Jun 19, 2020 10:48
[2020-06-19 11:26] VITALS: BP 117/65
--- NOTE | 2020-06-19 14:22 | CONS ---
DATE OF CONSULTATION: 06/19/2020 PATIENT'S ROOM: 664. REQUESTING PHYSICIAN: Dr. Olsen. REASON FOR CONSULTATION: COVID. 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 She states on Wednesday, Wednesday, she began to feel very tired, had some diarrhea, had a loss of taste and smell and had generalized body aches. She ended up going to [facility] on the and had a COVID test and was notified on the that her test was positive. In addition to herself a number of her other family members began to feel ill as well. She went to see her primary care provider because she was complaining of shortness of air and left-sided chest pain. She was found to have an O2 sat of 86%. She was having a dry cough. Temperature was 99.8 on arrival. Chest x-ray showed small inspiration with bibasilar atelectasis versus mild infiltrates. She was admitted to the hospital. She was placed on Zosyn given a dose of azithromycin. She received a dose of oral Decadron, but is now on Solu-Medrol. Currently, the patient is sitting upright in bed. She is feeling better. She actually ate and slept well. Still has a cough that is dry. Diarrhea has resolved. No dysuria or frequency. No rashes. PAST MEDICAL HISTORY: Positive for dyslipidemia, hypertension, morbid obesity. PAST SURGICAL HISTORY: Positive for cholecystectomy, partial hysterectomy, and hernia repair with mesh. REVIEW OF SYSTEMS: Otherwise negative. ALLERGIES: No known drug allergies. SOCIAL HISTORY: She works as a preschool assistant director. She has not traveled in the last couple of weeks. She did go to [place] over a month ago. No tobacco or alcohol. She has no pets. Again, she works as a head teacher. FAMILY HISTORY: Other family members or feeling ill as well. CURRENT MEDICATIONS: Include Zosyn, albuterol, Tylenol, Tessalon Perles, Prinivil, Solu-Medrol. PHYSICAL EXAMINATION: VITAL SIGNS: T-max was 99.8, currently 97.7, pulse 100, respirations 19, blood pressure 140/95, satting 97% on 2 liters. CONSTITUTIONAL: She is sitting upright on the side of bed. She looks well. She is in no acute distress. She is cooperative. HEENT: Pupils equal and reactive. She has normal conjunctivae. Oral cavity, pharynx is clear. NECK: Supple. Good range of motion. LUNGS: Decreased in the bases. HEART: S1, S2. ABDOMEN: Obese, soft, no guarding or rebound. EXTREMITIES: Without clubbing or cyanosis. No gross edema. SKIN: Warm to touch without signs of rash. NEUROLOGIC: She is nonfocal. PSYCHIATRIC: Affect was pleasant. LABORATORY DATA: White count 4.3, hemoglobin 12.3, platelets 139. Neutrophils were 69, lymphs were 23, glucose 109. Normal liver function study tests normal troponin I. Urine not consistent with a urinary tract infection. Chest x-ray reviewed in history of present illness. IMPRESSION: 1. Fever. 2. COVID positive from the , blood collected at [facility] on the . 3. Morbid obesity. 4. Acute hypoxic respiratory failure. 5. Currently on steroids. RECOMMENDATIONS: We will continue Zosyn for now, but wean soon. Follow up labs and cultures. Need for plasma and remdesivir per Pulmonary. Continue steroids per Pulmonary. Thank you for allowing me to participate in the patient's care. Should you have any further questions, please do not hesitate to contact me. WARREN FOSTER MD DR: HERB/emeterio JOB#: [id number] / [id number]
[2020-06-19 15:56] VITALS: BP 136/74
--- NOTE | 2020-06-19 17:34 | NUR ---
SW following. Reviewed chart and discussed with RN. Pt from home, 2l 02, vegetarian diet. No PT/OT needs. Pt on IV Zosyn. Pt COVID positive. SW to follow.
[2020-06-19 19:00] VITALS: BP 136/88
[2020-06-19] MEDS ORDERED: HYDR12.58 PO (20:57)
[2020-06-19] MEDS: LACTOBACILLUS RHAMNOSUS GG 1 CAPSULE. PO SCH (21:28)
[2020-06-19] MEDS: BENZONATATE 200 MG PO SCH (21:28)
[2020-06-19 23:00] VITALS: BP 117/82
[2020-06-20] MEDS: PIPERACILLIN/TAZOBACTAM 3.375 GM in IV NORMAL SALINE 50ML 50 ML IV SCH ×2 (00:06→06:02)
[2020-06-20] MEDS: guaiFENesin ORAL 200 MG/10 ML LIQUID. PO PRN ×2 (02:02→09:50)
[2020-06-20 03:00] VITALS: BP 131/81
[2020-06-20] MEDS: BENZONATATE 200 MG PO SCH ×2 (06:03→09:51)
[2020-06-20 07:00] VITALS: BP 111/72
[2020-06-20] MEDS ORDERED: LISINOPRIL 10 MG TABLET PO SCH (09:00)
[2020-06-20] MEDS ORDERED: hydroCHLOROthiazide 12.5 MG TABLET PO SCH (09:00)
[2020-06-20] MEDS ORDERED: hydroCHLOROthiazide 25 MG TABLET PO SCH (09:00)
--- NOTE | 2020-06-20 09:17 | PDOC ---
Infectious Disease Note Subjective Subjective Feeling much better. Occ cough with less sputum. No blood No F/c/S/N/v/D Vital Sign Vital Signs Vital Signs Date Time Temp Pulse Resp B/P (MAP) Pulse Ox O2 Delivery O2 Flow Rate FiO2 06/20/20 03:00 97.4 89 18 131/81 (98) 100 Nasal Cannula 2.0 97.4 Physical Exam PHYSICAL EXAM CONSTITUTIONAL: She is sitting upright on the side of bed. She looks well. She is in no acute distress. She is cooperative. HEENT: Pupils equal and reactive. She has normal conjunctivae. Oral cavity, pharynx is clear. NECK: Supple. Good range of motion. LUNGS: Decreased in the bases. HEART: S1, S2. ABDOMEN: Obese, soft, no guarding or rebound. EXTREMITIES: Without clubbing or cyanosis. No gross edema. SKIN: Warm to touch without signs of rash. NEUROLOGIC: She is nonfocal. PSYCHIATRIC: Affect was pleasant. Objective Assessment fever -better COVID + 06/13 but colleced at [facility] 06/11 Morbid Obesity Acute hypoxic resp failure on 1 liter 02 On Steroids Plan Plan of Care Discont Luis Alberto change to Augmentin for 5 days F/u labs and cults Need for Plasma/Remdesivir per Pulm. Cont Steroids per Pulm ID to sign off WARREN FOSTER MD Jun 20, 2020 09:17
[2020-06-20] MEDS: LACTOBACILLUS RHAMNOSUS GG 1 CAPSULE. PO SCH (09:30)
[2020-06-20] MEDS: methylPREDNISolone SOD SUCC PF 40 MG/ML VIAL. IV SCH (09:31)
[2020-06-20] MEDS: MULTIVITAMIN with MINERAL TABLET. PO SCH (09:31)
[2020-06-20] MEDS: AZITHROMYCIN 250 MG TABLET. PO SCH (09:31)
[2020-06-20] MEDS ORDERED: AMOXICILLIN/K CLAV 875/125MG TABLET. PO SCH (09:45)
[2020-06-20 11:00] VITALS: BP 123/84
--- NOTE | 2020-06-20 11:07 | PDOC ---
PULMONARY PROGRESS NOTES DATE: 06/20/20 TIME: 11:04 Subjective PT. is up sitting EOB on room air no SOB, No CP, reports episode of coughing overnight-- non-productive Remains on N/C Vitals Vital Signs Date Time Temp Pulse Resp B/P (MAP) Pulse Ox O2 Delivery O2 Flow Rate FiO2 06/20/20 07:00 97.0 74 18 111/72 (85) 100 Nasal Cannula 2.0 97.0 Comments Pt. seen during COVID -19 pandemic visual exam preformed RRR R/A- 2 Liters N/C no edema no rash Lungs: Clear Labs Laboratory Tests Test 06/18/20 14:45 06/18/20 15:30 06/18/20 16:04 White Blood Count 4.3 x10^3/uL (4.0-11.0) Red Blood Count 5.26 x10^6/uL (3.50-5.40) Hemoglobin 12.3 g/dL (12.0-15.5) Hematocrit 38.2 % (36.0-47.0) Mean Corpuscular Volume 73 fL (79-100) Mean Corpuscular Hemoglobin 23 pg (25-35) Mean Corpuscular Hemoglobin Concent 32 g/dL (31-37) Red Cell Distribution Width 14.9 % (11.5-14.5) Platelet Count 139 x10^3/uL (140-400) Neutrophils (%) (Auto) 69 % (31-73) Lymphocytes (%) (Auto) 23 % (24-48) Monocytes (%) (Auto) 7 % (0-9) Eosinophils (%) (Auto) 0 % (0-3) Basophils (%) (Auto) 0 % (0-3) Neutrophils # (Auto) 3.0 x10^3/uL (1.8-7.7) Lymphocytes # (Auto) 1.0 x10^3/uL (1.0-4.8) Monocytes # (Auto) 0.3 x10^3/uL (0.0-1.1) Eosinophils # (Auto) 0.0 x10^3/uL (0.0-0.7) Basophils # (Auto) 0.0 x10^3/uL (0.0-0.2) D-Dimer (Yanelis) 0.34 ug/mlFEU (0.00-0.50) Sodium Level 136 mmol/L (136-145) Potassium Level 3.5 mmol/L (3.5-5.1) Chloride Level 98 mmol/L (98-107) Carbon Dioxide Level 29 mmol/L (21-32) Anion Gap 9 (6-14) Blood Urea Nitrogen 7 mg/dL (7-20) Creatinine 0.9 mg/dL (0.6-1.0) Estimated GFR (Cockcroft-Gault) 80.9 BUN/Creatinine Ratio 8 (6-20) Glucose Level 109 mg/dL (70-99) Calcium Level 8.7 mg/dL (8.5-10.1) Total Bilirubin 0.3 mg/dL (0.2-1.0) Aspartate Amino Transf (AST/SGOT) 29 U/L (15-37) Alanine Aminotransferase (ALT/SGPT) 26 U/L (14-59) Alkaline Phosphatase 71 U/L (46-116) Troponin I Quantitative < 0.017 ng/mL (0.000-0.055) Total Protein 8.0 g/dL (6.4-8.2) Albumin 3.5 g/dL (3.4-5.0) Albumin/Globulin Ratio 0.8 (1.0-1.7) O2 Saturation 91 % (92-99) Arterial Blood pH 7.46 (7.35-7.45) Arterial Blood pCO2 at Patient Temp 32 mmHg (35-46) Arterial Blood pO2 at Patient Temp 59 mmHg (75-108) Arterial Blood HCO3 22 mmol/L (21-28) Arterial Blood Base Excess -1 mmol/L (-3-3) Oxyhemoglobin 90.6 % Methemoglobin 0.4 % (0.0-1.9) Carbon Monoxide, Quantitative 0.3 % (0.0-1.9) FiO2 21 Urine Collection Type Unknown Urine Color Yellow Urine Clarity Clear Urine pH 6.0 (<5.0-8.0) Urine Specific [place] 1.015 (1.000-1.030) Urine Protein 30 mg/dL (NEG-TRACE) Urine Glucose (UA) Negative mg/dL (NEG) Urine Ketones (Stick) 40 mg/dL (NEG) Urine Blood Negative (NEG) Urine Nitrite Negative (NEG) Urine Bilirubin Negative (NEG) Urine Urobilinogen Dipstick 0.2 mg/dL (0.2 mg/dL) Urine Leukocyte Esterase Negative (NEG) Urine RBC 0 /HPF (0-2) Urine WBC 1-4 /HPF (0-4) Urine Squamous Epithelial Cells Mod /LPF Urine Bacteria Few /HPF (0-FEW) Urine Mucus Mod /LPF Medications Active Scripts Medications Dose Route/Sig Max Daily Dose Days Date Category Lisinopril 10 Mg Tablet 10 Mg PO DAILY 09/15/19 Reported Comments CXR IMPRESSION: 1. Small inspiration with bibasilar atelectasis versus mild infiltrates. Impression . IMPRESSION: 1. Acute hypoxic respiratory failure secondary to COVID-19 pneumonia.--improved 2. Abnormal chest x-ray suggesting mild basal infiltrates consistent with pneumonia. 3. Underlying obesity. 4. Hypertension. Plan . RECOMMENDATIONS: 1. Continue with present oxygen at 2 liters, keep saturation 92 and above. 2. cont. ABX 3. cont. IV Solu-Medrol. 4. no need for remdesivir or plasma at this time plasma. 5.DVT/GI PPX 6. Discussed with RN. monitor clinical course could D/C home with oxygen if needed -- remain a-febrile MINDA TY MD Jun 20, 2020 11:07
--- NOTE | 2020-06-20 12:09 | PDOC ---
[employer] PROGRESS NOTE Date of Service DOS: DATE: 06/20/20 TIME: 12:08 Chief Complaint Chief Complaint Acute hypoxic respiratory failure secondary to COVID-19 pneumonia.--improved. Continue steroids. No indication for remdesivir or convalescent plasma at this time. Abnormal chest x-ray suggesting mild basal infiltrates consistent with pneumonia. Obesity. Hypertension. HLD History of Present Illness History of Present Illness Ms Hernandez is a 49-year-old female w/ PMHx HTN, HLD who was diagnosed with COVID- 19 after being informed of the positive test result that was performed on 09/20/2020. She was informed 3 days later about the positive result. She was sent home with self care, but she return to ED as her symptoms are worsening. Her oxygen saturations are down to 86% on room air. She has a persistent cough now. She has also had some diarrhea. Started on steroids Consulting Infectious Disease and Pulmonary. 06/19: Afebrile. On 2 L nasal cannulated oxygen. She still has an ongoing cough that is improved with Tessalon Perles. Only slight diarrhea and slight abdominal pain. Overall she feels about the same as yesterday Afebrile on 1 L today. Better appetite, less diarrhea. Feels improved from yesterday. Plan: 6 minute walk, discharge home on augmentin and prednisone as well as O2 Vitals/I&O Vitals/I&O: Vital Signs Date Time Temp Pulse Resp B/P (MAP) Pulse Ox O2 Delivery O2 Flow Rate FiO2 06/20/20 11:00 96.6 68 16 123/84 (97) 100 Nasal Cannula 1.0 96.6 I & O 06/19/20 06/19/20 06/20/20 15:00 23:00 07:00 Intake Total 430 ml 300 ml 0 ml Balance 430 ml 300 ml 0 ml Physical Exam Physical Exam: CONSTITUTIONAL: She is sitting upright on the side of bed. She looks well. She is in no acute distress. She is cooperative. HEENT: Pupils equal and reactive. She has normal conjunctivae. Oral cavity, pharynx is clear. NECK: Supple. Good range of motion. LUNGS: Decreased in the bases. HEART: S1, S2. ABDOMEN: Obese, soft, no guarding or rebound. EXTREMITIES: Without clubbing or cyanosis. No gross edema. SKIN: Warm to touch without signs of rash. NEUROLOGIC: She is nonfocal. PSYCHIATRIC: Affect was pleasant. Lungs: Clear Assessment and Plan Assessmemt and Plan Problems Medical Problems: (1) COVID-19 Status: Acute (2) Hypoxia Status: Acute Comment Review of Relevant I have reviewed the following items barry (where applicable) has been applied. Medications: Current Medications Medications (Trade) Dose Ordered Sig/Moy Route PRN Reason Start Time Stop Time Status Last Admin Dose Admin Lactobacillus Rhamnosus (Culturelle) 1 cap BID PO 06/19/20 21:00 06/20/20 09:30 Non-Formulary Medication 1 ea Q8HRS PO 06/19/20 22:00 06/20/20 09:51 Non-Formulary Medication 1 ea DAILY PO 06/20/20 09:00 06/20/20 09:32 Non-Formulary Medication 1 ea DAILY PO 06/20/20 09:00 06/20/20 09:32 Guaifenesin (Robitussin) 200 mg PRN Q4HRS PRN PO COUGH 06/20/20 01:15 06/20/20 09:50 Amoxicillin/ Clavulanate Potassium (Augmentin 875/ 125mg) 1 tab BID PO 06/20/20 09:45 06/20/20 10:37 Justicifation of Admission Dx: Justifications for Admission: Justification of Admission Dx: Yes (hypoxia) JAIRO ALLEN MD Jun 20, 2020 12:09
--- NOTE | 2020-06-20 12:21 | NUR ---
SW following. Reviewed chart and discussed with RN. Spoke with Dr. Sadler and Dr. Swain and pt is not ready for discharge today. Pt remains on 2l 02. Spoke with pt who stated she does not have home 02. Pt agreeable to 02 setup from [facility] upon discharge. SW completed Patient Choice of Vendor form. SW phoned and faxed clinicals and script to [facility], , (fax). SW waiting on results of 6 min walk. Pt remains on IV abx and is COVID positive. Pt's phone number to call for 02 setup in [phone]. SW to continue following. Addendum: 06/20/20 at 1504 by MING JOSHI SW reviewed 6 min walk documentation and pt does not qualify for 02 to be covered by insurance. Pt declined to pay for 02 privately. [facility] notified [facility] to cancel referral. No further SW needs at this time. Addendum: 06/20/20 at 1511 by MING JOSHI Pt to discharge self-care.
[2020-06-20] MEDS ORDERED: AMOX1TAB11 PO (14:33)
[2020-06-20] MEDS ORDERED: ASPI325T11 PO (14:33)
[2020-06-20] MEDS ORDERED: PRED20TA PO (14:33)
--- NOTE | 2020-06-20 14:37 | PDOC3 ---
Discharge Summary Visit Information Date of Admission: Jun 18, 2020 Date of Discharge: Jun 20, 2020 Admitting Diagnosis: Covid 19, hypoxia Final Diagnosis Problems Medical Problems: (1) COVID-19 Status: Acute (2) Hypoxia Status: Acute Brief Hospital Course Allergies Allergies Coded Allergies Type Severity Reaction Last Updated Verified No Known Drug Allergies 10/04/16 No Vital Signs Vital Signs Date Time Temp Pulse Resp B/P (MAP) Pulse Ox O2 Delivery O2 Flow Rate FiO2 06/20/20 11:00 96.6 68 16 123/84 (97) 100 Nasal Cannula 1.0 96.6 Lab Results Laboratory Tests Test 06/18/20 14:45 06/18/20 15:30 06/18/20 16:04 White Blood Count 4.3 x10^3/uL (4.0-11.0) Red Blood Count 5.26 x10^6/uL (3.50-5.40) Hemoglobin 12.3 g/dL (12.0-15.5) Hematocrit 38.2 % (36.0-47.0) Mean Corpuscular Volume 73 fL (79-100) Mean Corpuscular Hemoglobin 23 pg (25-35) Mean Corpuscular Hemoglobin Concent 32 g/dL (31-37) Red Cell Distribution Width 14.9 % (11.5-14.5) Platelet Count 139 x10^3/uL (140-400) Neutrophils (%) (Auto) 69 % (31-73) Lymphocytes (%) (Auto) 23 % (24-48) Monocytes (%) (Auto) 7 % (0-9) Eosinophils (%) (Auto) 0 % (0-3) Basophils (%) (Auto) 0 % (0-3) Neutrophils # (Auto) 3.0 x10^3/uL (1.8-7.7) Lymphocytes # (Auto) 1.0 x10^3/uL (1.0-4.8) Monocytes # (Auto) 0.3 x10^3/uL (0.0-1.1) Eosinophils # (Auto) 0.0 x10^3/uL (0.0-0.7) Basophils # (Auto) 0.0 x10^3/uL (0.0-0.2) D-Dimer (Yanelis) 0.34 ug/mlFEU (0.00-0.50) Sodium Level 136 mmol/L (136-145) Potassium Level 3.5 mmol/L (3.5-5.1) Chloride Level 98 mmol/L (98-107) Carbon Dioxide Level 29 mmol/L (21-32) Anion Gap 9 (6-14) Blood Urea Nitrogen 7 mg/dL (7-20) Creatinine 0.9 mg/dL (0.6-1.0) Estimated GFR (Cockcroft-Gault) 80.9 BUN/Creatinine Ratio 8 (6-20) Glucose Level 109 mg/dL (70-99) Calcium Level 8.7 mg/dL (8.5-10.1) Total Bilirubin 0.3 mg/dL (0.2-1.0) Aspartate Amino Transf (AST/SGOT) 29 U/L (15-37) Alanine Aminotransferase (ALT/SGPT) 26 U/L (14-59) Alkaline Phosphatase 71 U/L (46-116) Troponin I Quantitative < 0.017 ng/mL (0.000-0.055) Total Protein 8.0 g/dL (6.4-8.2) Albumin 3.5 g/dL (3.4-5.0) Albumin/Globulin Ratio 0.8 (1.0-1.7) O2 Saturation 91 % (92-99) Arterial Blood pH 7.46 (7.35-7.45) Arterial Blood pCO2 at Patient Temp 32 mmHg (35-46) Arterial Blood pO2 at Patient Temp 59 mmHg (75-108) Arterial Blood HCO3 22 mmol/L (21-28) Arterial Blood Base Excess -1 mmol/L (-3-3) Oxyhemoglobin 90.6 % Methemoglobin 0.4 % (0.0-1.9) Carbon Monoxide, Quantitative 0.3 % (0.0-1.9) FiO2 21 Urine Collection Type Unknown Urine Color Yellow Urine Clarity Clear Urine pH 6.0 (<5.0-8.0) Urine Specific [place] 1.015 (1.000-1.030) Urine Protein 30 mg/dL (NEG-TRACE) Urine Glucose (UA) Negative mg/dL (NEG) Urine Ketones (Stick) 40 mg/dL (NEG) Urine Blood Negative (NEG) Urine Nitrite Negative (NEG) Urine Bilirubin Negative (NEG) Urine Urobilinogen Dipstick 0.2 mg/dL (0.2 mg/dL) Urine Leukocyte Esterase Negative (NEG) Urine RBC 0 /HPF (0-2) Urine WBC 1-4 /HPF (0-4) Urine Squamous Epithelial Cells Mod /LPF Urine Bacteria Few /HPF (0-FEW) Urine Mucus Mod /LPF Brief Hospital Course Ms Hernandez is a 49-year-old female w/ PMHx HTN, HLD who was diagnosed with COVID- 19 after being informed of the positive test result that was performed on 09/20/2020. She was informed 3 days later about the positive result. She was sent home with self care, but she return to ED as her symptoms are worsening. Her oxygen saturations are down to 86% on room air. She has a persistent cough now. She has also had some diarrhea. Started on steroids Consulting Infectious Disease and Pulmonary. 06/19: Afebrile. On 2 L nasal cannulated oxygen. She still has an ongoing cough that is improved with Tessalon Perles. Only slight diarrhea and slight abdominal pain. Overall she feels about the same as yesterday Afebrile on 1 L today. Better appetite, less diarrhea. Feels improved from yesterday. Plan: 6 minute walk, discharge home on augmentin and prednisone as well as O2 Consults: Pulmonology Problem list: Acute hypoxic respiratory failure secondary to COVID-19 pneumonia.--improved. C ontinue steroids. No indication for remdesivir or convalescent plasma at this time. Abnormal chest x-ray suggesting mild basal infiltrates consistent with pneumonia. Obesity. Hypertension. HLD greater than 30 minutes spent on d/c home Discharge Information Condition at Discharge: Improved Follow Up: Weeks (1) Disposition/Orders: D/C to Home Scheduled Amoxicillin/Potassium Clav (Amox Tr-K Clv 875-125 Mg Tab) 1 Each Tablet, 1 TAB PO BID for pneumonia, covid 19 for 5 Days, #10 Prescribed by: JAIRO ALLEN MD on 06/20/20 1433 Aspirin (Aspirin Ec) 325 Mg Tablet.dr, 1 TAB PO DAILY for COVID 19 for 30 Days, #30 Ref 0 Prescribed by: JAIRO ALLEN MD on 06/20/20 1433 Hydrochlorothiazide (Hydrochlorothiazide Tablet) 12.5 Mg Tablet, 12.5 MG PO DAILY for DIURETIC, Ref 0 (Reported) Entered as Reported by: LAVONNE AMAYA RN on 06/19/202056 Last Action: Converted on 06/19/202105 by LAVONNE AMAYA RN Lisinopril (Lisinopril) 10 Mg Tablet, 10 MG PO DAILY for FOR HYPERTENSION, #30 Ref 0 (Reported) Entered as Reported by: LAMIN ENRIQUEZ on 09/15/19 1531 Last Action: Continued on 06/18/201939 by JANEEN LUCAS Prednisone (Prednisone) 20 Mg Tablet, 1 TAB PO DAILY for COVID 19 for 5 Days, #5 Prescribed by: JAIRO ALLEN MD on 06/20/20 1433 Justicifation of Admission Dx: Justifications for Admission: Justification of Admission Dx: Yes (hypoxia) JAIRO ALLEN MD Jun 20, 2020 14:37
--- NOTE | 2020-06-20 17:26 | NUR ---
PT DISCHARGED AND GIVEN EDUCATION AT THE TIME OF DISCHARGE REGARDING COVID SYMPTOMS WORSENING WELL COVID HANDOUTS. PT INSTRUCTED TO CALL HER PCP AND LET THEM KNOW THAT SHE TESTED POSITIVE AND WAS HOSPITALIZED. PT STATES UNDERSTANDING . IV REMOVED ALL BELONGINGS LEFT WITH THE PT AT THE TIME OF DISCHARGE. PT WHEELED TO MAIN ENTRANCE IN W/C AND FAMILY PICKED UP THE PT.
--- NOTE | 2020-06-21 09:15 | EKG ---
[facility] [address] [place] [address] Test Date: 2020-06-18 Test Time: 14:33:54 Pat Name: NABEEL MARTINEZ Department: Room: Gender: F Charge Account Clerk: : 1970 Requested By: HERNANDEZ PARKS Order Number: [id number] Reading MD: Measurements Intervals [place] Rate: 91 P: 54 IA: 182 QRS: 84 QRSD: 88 T: 25 QT: 348 QTc: 430 Interpretive Statements SINUS RHYTHM NORMAL ECG RI6.02 No previous ECG available for comparison
== END 2020-06-20 16:45 | disposition home or self-care (01) | DRG 177 ==
LOC: ER 14:20 → 6 SOUTH 16:16
PROVIDERS: ADMIT Internal Medicine; ATTEND Internal Medicine
DX: U07.1 COVID-19 (principal); J96.01 Acute respiratory failure with hypoxia; J12.89 Other viral pneumonia; Z68.41 Body mass index [BMI] 40.0-44.9, adult; E78.00 Pure hypercholesterolemia, unspecified; E78.5 Hyperlipidemia, unspecified; E66.01 Morbid (severe) obesity due to excess calories; I10 Essential (primary) hypertension; Z90.711 Acquired absence of uterus with remaining cervical stump; Z90.49 Acquired absence of other specified parts of digestive tract; Z83.3 Family history of diabetes mellitus
CPT/HCPCS: 36415; 71045; 80053; 81001; 82805; 84484; 85025; 85379; 93005; 94618; J0456; J2543; J2920; J7030; G0378

== ENCOUNTER → 2020-11-04 | Outpatient (CLI) | payer BC, OTHER ==
[~2020-11-04] MED LIST changes: +AMOX1TAB11 PO; +ASPI325T11 PO; +HYDR12.58 PO; +LISI10TA16 PO; -LISI10TA2 PO; +PRED20TA PO
--- NOTE | 2020-11-04 10:04 | RAD ---
EXAM: Bilateral digital screening mammogram with tomosynthesis. HISTORY: 50-year-old female presents for screening mammography. TECHNIQUE: Full-field digital craniocaudal and mediolateral oblique 2D and 3D tomosynthesis images of both breasts are obtained for evaluation. Computer aided detection was applied. COMPARISON: 11/02/2019 BREAST PARENCHYMAL DENSITY: Level B - Scattered fibroglandular densities. FINDINGS: There is no new suspicious mass, microcalcification or region of architectural distortion. There has been interval decrease in the size of a circumscribed nodule within the posterior 6:00 posi tion of the left breast. There are additional areas of nodularity within both breasts which are stabl e when allowing for differences in imaging technique. There are a few benign calcifications. IMPRESSION: BI-RADS Category 2: Benign finding(s). RECOMMENDATION: Annual mammography is recommended. If your mammogram demonstrates that you have dense breast tissue, which could hide abnormalities, and if you have other risk factors for breast cancer that have been identified, you might benefit from s upplemental screening tests that may be suggested by your ordering physician. Dense breast tissue, i n and of itself, is a relatively common condition. This information is not provided to cause undue c oncern, but rather to raise your awareness and to promote discussion with your physician regarding th e presence of other risk factors, in addition to dense breast tissue. A report of your mammography re sults will be sent to you and your physician. You should contact your physician if you have any ques tions or concerns regarding this report. Mammography is a sensitive method for finding small breast cancers, but it does not detect them all a nd is not a substitute for careful clinical examination. A negative mammogram does not negate a clin ically suspicious finding and should not result in delay in biopsying a clinically suspicious abnorma lity. PQRS compliance statement - Patient information was entered into a reminder system with a target due date for the next mammogram. "Our facility is accredited by the [employer] Mammography Program." Electronically signed by: Shalini Castaneda MD (11/04/2020 10:01 AM) [id number]
== END ==
LOC: MAMMO 08:26
PROVIDERS: ATTEND Family Medicine
DX: Z12.31 Encounter for screening mammogram for malignant neoplasm of breast (principal); N64.89 Other specified disorders of breast
CPT/HCPCS: 77063; 77067

== ENCOUNTER → 2021-06-02 | Outpatient (CLI) | payer OTHER ==
--- NOTE | 2021-06-02 12:20 | KCIC ---
EXAM: CT coronary artery calcium screening; radiologist over read. HISTORY: Mixed hyperlipidemia. TECHNIQUE: Computed tomographic images of the chest were obtained without contrast. Multiplanar refor matting was performed. *One or more of the following individualized dose reduction techniques were utilized for this examina tion: 1. Automated exposure control. 2. Adjustment of the mA and/or kV according to patient size. 3. Use of iterative reconstruction technique. COMPARISON: None. FINDINGS: The heart is normal in size. The visualized aorta is normal in caliber. There are calcified right paratracheal, subcarinal and right hilar granulomas. No pathologically enlarged noncalcified l ymph node is seen. There is no pneumothorax or pleural effusion. There is no infiltrate or suspicious pulmonary nodule. There is minimal groundglass opacity within both lungs which is likely due to atel ectasis. There is no acute finding involving the upper abdomen or osseous structures. There is suspec robin hepatomegaly and hepatic steatosis. Coronary artery calcium score: 0. IMPRESSION: 1. Coronary artery calcium score of 0. There is no identifiable atherosclerotic plaque. 2. Healed cranial metastasis disease. No acute thoracic finding. Electronically signed by: Shalini Castaneda MD (06/02/2021 12:17 PM) [id number]
== END ==
LOC: KCIC CT 10:59
PROVIDERS: ATTEND Family Medicine
DX: E78.2 Mixed hyperlipidemia (principal); L92.8 Other granulomatous disorders of the skin and subcutaneous tissue
CPT/HCPCS: 75571

== ENCOUNTER → 2021-11-17 | Outpatient (CLI) | payer BC, OTHER ==
--- NOTE | 2021-11-17 12:29 | RAD ---
BILATERAL DIGITAL SCREENING 2-D AND 3-D MAMMOGRAM INDICATION: Routine screening. COMPARISON: November 04, 2020, November 02, 2019, October 29, 2017 and October 31, 2018 Interpretation was made using CAD. FINDINGS: Breast Density: There are scattered areas of fibroglandular density. RIGHT BREAST: There are stable oval circumscribed tiny masses scattered throughout the right breast. No suspicious masses, calcifications or areas of architectural distortion are seen. LEFT BREAST: A biopsy clip is again seen in the posterior breast with an an unchanged benign-appearin g mass. No suspicious masses, calcifications or areas of architectural distortion are seen. IMPRESSION: 1. No imaging evidence of malignancy. ASSESSMENT: BI-RADS 2. Benign Findings. RECOMMENDATION: Routine annual screening mammogram. The facility will notify the patient of the results via mail. Patient information will be entered int o the mammography reminder system with a target recall date for the next mammogram. A reminder letter will be generated by the facility. Electronically signed by: Rosalina Slater MD (11/17/2021 12:26 PM) [id number]
== END ==
LOC: MAMMO 09:04
PROVIDERS: ATTEND Family Medicine
DX: Z12.31 Encounter for screening mammogram for malignant neoplasm of breast (principal)
CPT/HCPCS: 77063; 77067